=== PATIENT | female | born 1975 | race Caucasian/White ===

== ENCOUNTER 2017-06-18 10:21 | Observation (INO) | payer OTHER ==
--- NOTE | 2017-06-18 06:39 | PDHPUP ---
History & Physical Update H&P update statement: This history and physical update is based on an assessment of the patient which was completed after admission or registration (within 24 hours), but prior to the surgery/procedure. H&P update: H&P reviewed & patient examined, no change in patient's condition since H&P completed
--- NOTE | 2017-06-18 09:45 | PDANEPAE ---
ANE History of Present Illness 41 yo female with cervicalgia and R scapula/UE pain and paresthesia related to worsening of radiculopathy and spinal stenosis. Case cancelled today due to solid intake this AM, and unavailability of neuro team later this evening. Case to be rescheduled at another date. ANE Past Medical History - Cardiovascular History Hx Hypertension: No Hx Arrhythmias: No Hx Chest Pain: No Hx Coronary Artery / Peripheral Vascular Disease: No Hx CHF / Valvular Disease: No Hx Palpitations: No - Pulmonary History Hx COPD: No Hx Asthma/Reactive Airway Disease: Yes Hx Recent Upper Respiratory Infection: No Hx Oxygen in Use at Home: No Hx Sleep Apnea: No Sleep Apnea Screening Result - Last Documented: Negative Pulmonary History Comment: no inhaler needed - Neurologic History Hx Cerebrovascular Accident: No Hx Seizures: No Hx Dementia: No - Endocrine History Hx Diabetes: No - Renal History Hx Renal Disorders: No - Liver History Hx Hepatic Disorders: No - Neurological & Psychiatric Hx Hx Neurological and Psychiatric Disorders: Yes Neurological / Psychiatric History Comment: R arm numbness/tingling. anxiety - Cancer History Hx Cancer: No - Congenital Disorder History Hx Congenital Disorders: No - GI History Hx Gastrointestinal Disorders: No - Other Health History Other Health History: none - Chronic Pain History Chronic Pain: Yes (PINCHED NERVE IN NECK DUE TO AN INJURY) - Surgical History Prior Surgeries: R ft surgery ANE Review of Systems Review of Systems: - Exercise capacity METS (RN): 4 METS ANE Patient History - Allergies Allergies/Adverse Reactions: No Known Allergies Allergy (Unverified 03/01/16 12:07) - Home Medications Home Medications: ALPRAZolam [Xanax 0.5 MG (*)] 0.5 mg PO HS 05/19/17 [Last Taken 06/17/17] Doxylamine Succinate [Unisom Sleep Aid] 25 mg PO HS PRN 05/19/17 [Last Taken 06/22] Herbals/Supplements -Info Only 1 ea PO DAILY 05/19/17 [Last Taken 06/16/17] Ibuprofen [Motrin (*)] 400 mg PO HS PRN 05/19/17 [Last Taken 1 Week Ago ~] Sertraline HCl [Zoloft 100mg (*)] 100 mg PO DAILY 05/19/17 [Last Taken 1 Week Ago ~06/11/17] ACETAMINOPHEN 06/18/17 [Last Taken 06/17/17] Probiotic 06/18/17 [Last Taken 06/17/17] - NPO status NPO Since - Solids (Date): 06/18/17 NPO Since - Solids (Time): 08:45 (cereal+granola+almond milk) - Smoking Hx Smoking Status: Former smoker ANE Labs/Vital Signs - Vital Signs Height: 167.64 cm Weight: 58.06 kg ANE Physical Exam - ASA Status ASA Status: II ANE Anesthesia Plan Total IV Anesthesia: No
[2017-06-18] MEDS ORDERED: ACETAMINOPHEN 500 MG TAB PO ONE (12:14)
[2017-06-18] MEDS ORDERED: GABAPENTIN 300 MG CAP PO ONE (12:14)
[2017-06-18] MEDS ORDERED: ceFAZolin 2 GM/SWFI 2 GM/20 ML SYR IVP ONE (12:14)
[2017-06-18] MEDS ORDERED: MIDAZOLAM 2 MG/2 ML VIAL IVP ONE (12:15)
[2017-06-18] MEDS ORDERED: DEXMEDETOMIDINE HCL 400 MCG in NS 100 ML IV SCH (12:30)
[2017-06-18] MEDS ORDERED: DEXMEDETOMIDINE IN 0.9 % NACL 50 ML IV SCH (12:30)
[2017-06-19] MEDS ORDERED: LR 1,000 ML IV ONE (06:00)
[2017-06-19] MEDS ORDERED: LIDOCAINE 1% 2 ML INJ ID PRN (06:00)
[2017-06-19] MEDS ORDERED: ACETAMINOPHEN 500 MG TAB ONE (06:14)
[2017-06-19] MEDS ORDERED: ceFAZolin 2 GM/SWFI 20 ML SYR IVP ONE (06:15)
[2017-06-19] MEDS ORDERED: GABAPENTIN 300 MG CAP ONE ×2 (06:15→06:30)
[2017-06-19] MEDS ORDERED: BUPIVACAINE 0.25% 30 ML SDV ONE (06:51)
[2017-06-19] MEDS ORDERED: THROMBIN (BOVINE) 5,000 UNIT VIAL TP ONE (06:51)
[2017-06-19] MEDS ORDERED: BACITRACIN 50,000 UNITS/10 ML SYR IRR ONE (06:52)
[2017-06-19] MEDS ORDERED: MIDAZOLAM 2 MG/2 ML VIAL IVP ONE (07:01)
--- NOTE | 2017-06-19 07:03 | PDANEPAE ---
ANE History of Present Illness acdf ANE Past Medical History - Cardiovascular History Hx Hypertension: No Hx Arrhythmias: No Hx Chest Pain: No Hx Coronary Artery / Peripheral Vascular Disease: No Hx CHF / Valvular Disease: No Hx Palpitations: No - Pulmonary History Hx COPD: No Hx Asthma/Reactive Airway Disease: Yes Hx Recent Upper Respiratory Infection: No Hx Oxygen in Use at Home: No Hx Sleep Apnea: No Sleep Apnea Screening Result - Last Documented: Negative Pulmonary History Comment: no inhaler needed - Neurologic History Hx Cerebrovascular Accident: No Hx Seizures: No Hx Dementia: No - Endocrine History Hx Diabetes: No - Renal History Hx Renal Disorders: No - Liver History Hx Hepatic Disorders: No - Neurological & Psychiatric Hx Hx Neurological and Psychiatric Disorders: Yes Neurological / Psychiatric History Comment: R arm numbness/tingling. anxiety - Cancer History Hx Cancer: No - Congenital Disorder History Hx Congenital Disorders: No - GI History Hx Gastrointestinal Disorders: No - Other Health History Other Health History: none - Chronic Pain History Chronic Pain: Yes (PINCHED NERVE IN NECK DUE TO AN INJURY) - Surgical History Prior Surgeries: R ft surgery ANE Review of Systems Review of Systems: - Exercise capacity METS (RN): 4 METS ANE Patient History - Allergies Allergies/Adverse Reactions: No Known Allergies Allergy (Unverified 03/01/16 12:07) - Home Medications Home Medications: ALPRAZolam [Xanax 0.5 MG (*)] 0.5 mg PO HS 05/19/17 [Last Taken 06/17/17] Doxylamine Succinate [Unisom Sleep Aid] 25 mg PO HS PRN 05/19/17 [Last Taken 21:30] Herbals/Supplements -Info Only 1 ea PO DAILY 05/19/17 [Last Taken 06/16/17] Ibuprofen [Motrin (*)] 400 mg PO HS PRN 05/19/17 [Last Taken 1 Week Ago ~] Sertraline HCl [Zoloft 100mg (*)] 100 mg PO DAILY 05/19/17 [Last Taken 06/19/17 05:00] ACETAMINOPHEN 06/18/17 [Last Taken 06/18/17] Probiotic 06/18/17 [Last Taken 06/18/17] - NPO status NPO Since - Liquids (Date): 06/18/17 NPO Since - Liquids (Time): 11:00 NPO Since - Solids (Date): 06/18/17 NPO Since - Solids (Time): 08:45 - Smoking Hx Smoking Status: Former smoker ANE Labs/Vital Signs - Vital Signs Blood Pressure: 107/70 Heart Rate: 59 Respiratory Rate: 16 O2 Sat (%): 97 Height: 167.64 cm Weight: 58.06 kg ANE Physical Exam - Airway Mallampati Score: Class 2 Mouth exam: normal dental/mouth exam - Pulmonary Pulmonary: no respiratory distress - Cardiovascular Cardiovascular: regular rate and rhythym - ASA Status ASA Status: II ANE Anesthesia Plan Anesthesia Plan: general endotracheal anesthesia
[2017-06-19] MEDS ORDERED: REMIFENTANIL HCL 1 MG VIAL ONE (07:08)
[2017-06-19] MEDS ORDERED: PROPOFOL 200 MG/20 ML VIAL ONE (07:08)
[2017-06-19] MEDS ORDERED: fentaNYL 100 MCG/2 ML INJ ONE ×2 (07:08→10:47)
[2017-06-19] MEDS ORDERED: DEXAMETHASONE 4 MG/ML VIAL ONE (07:09)
[2017-06-19] MEDS ORDERED: PROPOFOL/EMULSION 500 MG/50 ML BOTTLE IV ONE (07:09)
[2017-06-19] MEDS ORDERED: ONDANSETRON 4 MG/2 ML VIAL ONE (07:09)
[2017-06-19] MEDS ORDERED: ROCURONIUM 50 MG/5 ML VIAL ONE (07:09)
[2017-06-19] MEDS ORDERED: LIDOCAINE 2% 5 ML SDV ONE (07:09)
[2017-06-19] MEDS ORDERED: diphenhydrAMINE 25 MG CAP PO PRN (07:40)
[2017-06-19] MEDS ORDERED: POLYETHYLENE GLYCOL 3350 17 GM PKT PO PRN (07:40)
[2017-06-19] MEDS ORDERED: BISACODYL 10 MG SUPP PR PRN (07:40)
[2017-06-19] MEDS ORDERED: oxyCODONE IR 5 MG TAB PO PRN (07:40)
[2017-06-19] MEDS ORDERED: MAGNESIUM HYDROXIDE 30 ML UDCUP PO PRN (07:40)
[2017-06-19] MEDS ORDERED: LACTULOSE 20 GM/30 ML UDCUP PO PRN (07:40)
[2017-06-19] MEDS ORDERED: DOXYLAMINE SUCCINATE 25 MG PO PRN (07:40)
[2017-06-19] MEDS ORDERED: ONDANSETRON 4 MG/2 ML VIAL IVP PRN ×2 (07:40→08:11)
[2017-06-19] MEDS ORDERED: ONDANSETRON DISINTEGRATING 4 MG TAB PO PRN (07:40)
[2017-06-19] MEDS ORDERED: morphINE PCA 30 MG/30 ML PCA IV PRN (07:40)
[2017-06-19] MEDS ORDERED: NALOXONE HCL 0.4 MG/ML INJ IVP PRN ×2 (07:40→08:11)
[2017-06-19] MEDS ORDERED: ACETAMINOPHEN 325 MG TAB PO PRN (07:40)
[2017-06-19] MEDS ORDERED: ZOLPIDEM TARTRATE 5 MG TAB PO PRN (07:40)
[2017-06-19] MEDS ORDERED: GLYCOPYRROLATE 0.2 MG/1 ML VIAL ONE ×2 (07:41→07:48)
[2017-06-19] MEDS ORDERED: NS W/ 20 KCl/L 1,000 ML IV SCH (07:45)
[2017-06-19] MEDS ORDERED: MIDAZOLAM 2 MG/2 ML VIAL ONE (08:09)
[2017-06-19] MEDS ORDERED: LR 500 ML IV PRN (08:11)
[2017-06-19] MEDS ORDERED: DIAZEPAM 10 MG/2 ML SYR IVP PRN (08:11)
[2017-06-19] MEDS ORDERED: ALBUTEROL 3 ML DEYVIAL IH PRN (08:11)
[2017-06-19] MEDS ORDERED: PROMETHAZINE HCL 25 MG/ML INJ IVP PRN (08:11)
[2017-06-19] MEDS ORDERED: MEPERIDINE 25 MG/ML SYR IVP PRN (08:11)
[2017-06-19] MEDS ORDERED: SUGAMMADEX SODIUM 200 MG/2 ML VIAL IVP ONE (10:08)
--- NOTE | 2017-06-19 10:40 | POSTANESTH ---
Post Anesthetic Evaluation Cardiovascular Status: Normal, Stable Respiratory Status: Normal, Stable Level of Consciousness/Mental Status: Can Participate in Eval, Moderately Sleepy Pain Control: Adequate, Prn Tx Ordered Nausea/Vomiting Control: Adequate, Prn Tx Ordered Complications Possibly Related to Anesthesia: None Noted
[2017-06-19] MEDS: fentaNYL 100 MCG/2 ML INJ IVP PRN ×2 (10:50→11:03)
[2017-06-19] MEDS ORDERED: HYDROmorphONE/DILAUDID 1 MG/ML INJ ONE (10:57)
[2017-06-19] MEDS: HYDROmorphONE/DILAUDID 1 MG/ML INJ IVP PRN ×2 (10:59→11:46)
--- NOTE | 2017-06-19 11:36 | SOAPPROG ---
SOAP Progress Note Assessment/Plan: Post Op Visit: S: Awake and alert. Pt with some expected neck pain. O: AFVSS/PERRLA/EOMI no droop CN 2-12 grossly intact 5/5 BUE/BLE = except right triceps at 4+/5 CDI neck soft and supple A/P: 41 yo female that is s/p ACDF C5-C7 -orders in place -call with any questions or concerns -Pt seen by Dr Armenta as well 06/19/17 11:33 Objective: Vital Signs Temp Pulse Resp BP Pulse Ox 36.6 C 59 L 16 107/70 97 06/19/17 10:36 06/19/17 07:03 06/19/17 07:03 06/19/17 07:03 06/19/17 11:18 ICD10 Worksheet Patient Problems: Problems Problem Status Onset Arthrodesis status Acute Cervical radicular pain Acute Cervical stenosis of spine Acute (spontaneous vaginal delivery) Acute - ICD10 Problem Qualifiers (1) Cervical stenosis of spine (2) Cervical radicular pain (3) Arthrodesis status
[2017-06-19] MEDS: SERTRALINE HCL 100 MG TAB PO SCH (12:16)
[2017-06-19] MEDS: SENNOSIDES/DOCUSATE SODIUM TAB PO SCH ×2 (12:16→20:49)
[2017-06-19] MEDS: FAMOTIDINE 20 MG TAB PO SCH ×2 (12:16→20:51)
[2017-06-19] MEDS ORDERED: DOXYLAMINE PO PRN (12:24)
[2017-06-19] MEDS: METHOCARBAMOL 750 MG TAB PO PRN ×2 (12:35→20:51)
[2017-06-19] MEDS ORDERED: ceFAZolin 2 GM/DEXTROSE 100 ML IV SCH (14:00)
[2017-06-19] MEDS: HYDROCODONE/APAP 5/325 TAB PO PRN ×2 (15:03→16:52)
[2017-06-19] MEDS ORDERED: ceFAZolin 2 GM/SWFI 2 GM/20 ML SYR IVP SCH (15:30)
[2017-06-19] MEDS: ceFAZolin 2 GM/DEXTROSE 100 ML IV SCH ×2 (15:46→23:50)
--- NOTE | 2017-06-19 17:58 | GOP ---
[f rep st] OPERATIVE REPORT Corrected report DATE OF OPERATION: 06/19/2017 SURGEON: Dyana Armenta MD W[employer] SCIENTIST: Joseph Torres PA-C PREOPERATIVE DIAGNOSIS: 1. Cervical spondylosis with severe cervical stenosis, C5-6, C6-7. 2. Cervical degenerative disk disease, C4-5 5-6, and 6-7. 3. Bilateral cervical radiculopathy, right greater than left. POSTOPERATIVE DIAGNOSIS: 1. Cervical spondylosis with severe cervical stenosis, C5-6, C6-7. 2. Cervical degenerative disk disease, C4-5, 5-6, and 6-7. 3. Bilateral cervical radiculopathy, right greater than left. PROCEDURE PERFORMED: Anterior cervical diskectomy with decompression and fusion at C5-6, 6-7 (81533 and 2255), placement of biomechanical intervertebral device C5-6 C6-7 (09220 x2), same incision bone graft harvest, microscope, anterior cervical instrumentation 3 levels (C5, C6, C7). FINDINGS: ESTIMATED BLOOD LOSS: 100 cc. DESCRIPTION OF PROCEDURE: Patient was taken to the operating room, placed in supine position, and general anesthesia was begun. A midline shoulder roll was placed. Arms were tucked at the sides. She had a dominant neck crease that was slightly low on her neck compared to where we wanted to go, but it was just such a deep and prominent neck crease I wanted to use it. It was down at about the C6-7 level and this is one I did elect to use. She was sterilely prepped and draped in usual fashion. We made an incision on the left side of the neck in the dominant neck crease. The subcutaneous tissue was dissected with Bovie cautery through the platysma. We then used a combination of blunt and sharp dissection and worked our way medial to the sternocleidomastoid and lateral to the strap muscles, down to the prevertebral space. There were actually a ton of nerves and nervous tissue present in our dissection. We were medial to the carotid sheath, and its contents were identified, and the dissection was actually quite straightforward. None of the nerves were cut; we simply dissected around them. It did take a little bit of additional time, but the dissection itself was straightforward. We did not compromise or sacrifice any of the nerves or blood vessels in the neck. There was 1 vein in the prevertebral space that we did sacrifice, but that was the only vein taken. A localizing x-ray was taken. We dissect the longus colli muscles off the spine at C5-6, 6-7, and a self-retaining retractor was placed. A localizing x-ray was taken. We removed the ventral osteophytes at C5-6, 6-7, and placed distraction pin at C5-6. Removed the disk and the cartilaginous endplates. We drilled and harvested subchondral bone at 5-6. We then drilled down and removed the large posterior bony and osteophyte complex protruding in the spinal canal. We chose a 7 mm PEEK intervertebral device that was lordotic in nature. We harvested a large amount of subchondral bone to put inside the device. We opened the posterior longitudinal ligament, decompressed the exiting C6 nerve roots bilaterally at that segment. There was a lot of epidural bleeding at C5-6, more so than what we thought, C6-7 to come; nevertheless it was easily controlled with Gelfoam. A nice decompression was obtained. We then placed the intervertebral device at C5-6 and then moved our distraction pins and did likewise at C6-7. This level was a little easier to accomplish, because we had a slightly better field of view, and our approach was more straightforward. We removed the disk and the cartilaginous endplates. We drilled and harvested subchondral bone for autologous grafting purposes. We then opened the PLL. We chose again a 7 mm PEEK intervertebral device for the C6-7 level. We decompressed the neural foramen bilaterally. The right neural foramen at C6-7 did appear to be worse than the left side, and we decompressed the exiting C7 nerve root all the way out distal to the pedicle of C7. There was no evidence of abnormal nerve firing in this process. The bleeding at C6-7 was also slightly easier to handle, but we did place a small piece of Gelfoam down over the lateral portion of the thecal sac to help prevent epidural bleeding. We placed our intervertebral device at C6-7 packed with bone autograft. Nice fit was obtained. We then chose a 41 mm plate, examined its length, and then bent it to fit and increase the lordosis. We placed a single screw at C5, a single screw at C7, and checked an x-ray. We then placed the remaining screws and locked them all according to company specification. The plate sat flush against the spine, and all the screws were well seated within the vertebral body. We then achieved meticulous hemostasis and closed the incision in multiple layers using Vicryl sutures. There were no complications. COMPLICATIONS: None. INDICATIONS FOR THE PROCEDURE: The patient is a 41-year-old who was scheduled for surgery yesterday, but unfortunately n.p.o. status was compromised apparently due to bad instructions or miscommunication between her and our pre- surgery testing unit, and the surgery was postponed until today. She had a severe cervical stenosis 5-6, 6-7 and was symptomatic from this in the right arm more so than the left, and there was evidence of spinal stenosis significant at those 2 levels. There was some spinal stenosis and degenerative changes at 4-5, but I did not think it was symptomatic. We had discussed a 2- level cervical arthroplasty versus fusion, and I thought she was a better candidate for fusion, given the spondylosis that we saw in her neck, and I explained to her the risks and benefits of both approaches. She understood there was a chance of esophageal injury, carotid injury, and recurrent laryngeal nerve injury including permanent hoarseness, which risk was low, but she did know that there was some chance of this. She knew there was a risk of pseudoarthrosis and adjacent segment disease as well as spinal cord injury, prevertebral hematoma and bleeding requiring repeat surgery. She did want to proceed, despite these risks. She knew dysphagia was almost certainly going to occur. /[id number]/MODL Patrick acc#, 06/26/17, abhijit MUNOZ
[2017-06-19] MEDS ORDERED: ALPRAZolam 0.5 MG TAB PO SCH (21:00)
[2017-06-19] MEDS: metroNIDAZOLE 500 MG TAB PO SCH (22:10)
[2017-06-19 23:06] VITALS: RESP 16
[2017-06-20] MEDS: HYDROCODONE/APAP 5/325 TAB PO PRN ×2 (00:08→11:14)
[2017-06-20 08:11] VITALS: TEMP 98.7
--- NOTE | 2017-06-20 08:51 | NEUSURGPN ---
Assessment/Plan: A: 41 female s/p ACDF C5-C7 POD#1 P: PT/OT/LAY BROTHER Pain management Post op xrays pending TEDs, SCDs, encourage ambulation C collar at all times - ok to remove for showers Spine precautions D/w Dr Armenta Call NS with any questions/concerns Subjective: Pt resting in bed, c/o difficulty breathing/pain Objective: AAOx3 NAD O2 sat 95+ on RA MAEx4 Motor 5/5 BUE & BLE with exception of R triceps 4/5 Incision dressed cdi C collar on +LT Urinary Catheter in Place: No - Physician Discussed Patient with : [facility] Physical Exam - Vitals, I&O, Labs I and O 06/19/17 06/20/17 06/21/17 05:59 05:59 05:59 Intake Total 3180 Output Total 1300 Balance 1880 Weight 58.06 kg 58.06 kg Intake: Oral (ml) 480 IV Intake (ml) 2200 IV Infused (ml) 500 NS W/ 20 KCl/L 1,000 ml @ 400 75 mls/hr IV CONT CHRISTIE Rx #:[id number] ceFAZolin 2 GM/DEXTROSE 100 100 ml @ 200 mls/hr IV Q8H CHRISTIE Rx#:[id number] Output: Urine (ml) 1200 Toilet 1200 Estimated Blood Loss (ml) 100 Other: Intake Quantity Yes Sufficient Number of Voids Toilet 1 Vital Signs Temp Pulse Resp BP Pulse Ox 37.1 C 55 L 16 106/68 95 06/20/17 08:00 06/20/17 08:00 06/20/17 08:00 06/20/17 08:00 06/20/17 08:00 ICD10 Worksheet Patient Problems: Problems Problem Status Onset Arthrodesis status Acute Cervical radicular pain Acute Cervical stenosis of spine Acute (spontaneous vaginal delivery) Acute
[2017-06-20] MEDS: METHOCARBAMOL 750 MG TAB PO PRN (09:41)
[2017-06-20] MEDS: SENNOSIDES/DOCUSATE SODIUM TAB PO SCH (09:41)
[2017-06-20] MEDS: SERTRALINE HCL 100 MG TAB PO SCH (09:41)
[2017-06-20] MEDS: metroNIDAZOLE 500 MG TAB PO SCH (09:41)
[2017-06-20] MEDS: FAMOTIDINE 20 MG TAB PO SCH (09:41)
[2017-06-20 11:59] VITALS: BP 118/72; PULSE 65; O2SAT 98
[2017-06-22] MEDS ORDERED: ENOXAPARIN 40 MG/0.4 ML SYR SC SCH (09:00)
== END 2017-06-20 13:35 | disposition home or self-care (01) ==
LOC: UNDOADMOB 12:14 → F3E 12:14 → F3N 12:14 → F3E 16:00 → F3N 16:00
PROVIDERS: ADMIT Neurological Surgery; ATTEND Neurological Surgery
PROC: 0RG20A0 Fusion of 2 or more Cervical Vertebral Joints with Interbody Fusion Device, Anterior Approach, Anterior Column, Open Approach (ICD-10-PCS; principal; 2017-06-19 07:15)
PROC: BR101ZZ Fluoroscopy of Cervical Spine using Low Osmolar Contrast (ICD-10-PCS; principal; 2017-06-19 07:15)
PROC: 0RT50ZZ Resection of Cervicothoracic Vertebral Disc, Open Approach (ICD-10-PCS; principal; 2017-06-19 07:15)
DX: M48.02 Spinal stenosis, cervical region (principal); M54.12 Radiculopathy, cervical region
CPT/HCPCS: 22551; 22552; 72040; 76001; 92526; 92610; 97161; 97165; 97530; G0378; C1713; J0171; J0690; J1100; J1170; J2250; J2405; J2704; J3010